=== PATIENT | female | born 1960 | race Caucasian/White ===

== ENCOUNTER 2016-07-29 10:19 | Outpatient (CLI) ==
[2015-02-13 14:21] VITALS: BMI 25.4
--- NOTE | 2016-07-29 10:53 | MAMMO ---
EXAM: Right digital diagnostic mammogram. History: Right breast nodules. Comparison: Bilateral mammogram 07/08/2016 Findings: Right breast density is scattered. Additional spot compression views of the right breast demonstrate normal superimposed breast parenchyma. There are no suspicious masses and no microcalc ifications. Impression: Benign right mammogram. Recommend return to routine screening mammography schedule. BIRADS 2
== END 2016-07-29 10:20 | disposition home or self-care (01) ==
LOC: RAD 10:19
PROVIDERS: ATTEND Family Medicine
DX: R92.8 Other abnormal and inconclusive findings on diagnostic imaging of breast (principal)

== ENCOUNTER 2017-08-16 08:58 | Outpatient (CLI) ==
[2015-02-13 14:21] VITALS: BMI 25.4
--- NOTE | 2017-08-16 10:43 | MRI ---
EXAM: MRI lumbar spine without IV contrast. DATE: 16 August 2017. HISTORY: Low back pain. TECHNIQUE: Sagittal and axial T1W and T2W sequences of the lumbar spine along with sagittal IR and c oronal T2W sequences were obtained using 1.2 Kayla magnet. No IV contrast. COMPARISON: LS spine series 07/28/2012. MRI L-spine 07/28/2012. FINDINGS: There are five [id number] lumbar vertebra. No lumbar scoliosis is present. No acute lumbar fracture, subluxation, osseous malignancy, or pars interarticularis defect is demonstrated. Lumbar vertebra are normal in height. Bone marrow signal is overall normal. Focal area of IR hyperi ntensity is now within the right L4 pars interarticularis region, suggesting stress reaction. Tiny, chronic Schmorl's nodes are visible at L1, L2, and L3. Minor osteophytes are seen in the lower L-spi ne. Mild disc space narrowing is detected at L1-2. Remaining intervertebral discs are normal in hei ght. T2W bright, T1W dark, 5.4 x 9.8 mm right paramidline focus in the spinal canal at S2 is likely a Tarlov cyst. No acute sacral fracture or stress reaction is evident. SI joints are unremarkable. Conus medullaris terminates at L1-2. Visible spinal cord is normal. No retroperitoneal lymphadenopathy, paraspinal mass, or aortic aneurysm is detected. Paraspinal musc ulature is symmetric bilaterally. Right lobe liver is greater than 16.5 cm in length, without distin ct focal mass. Spleen, right adrenal gland, and kidneys are normal. Left adrenal body demonstrates a 5.1 x 4 mm contour bulge/thickening on axial image #6. A rounded T2W/T1W intermediate signal focus (12.3 mm) near the inferomedial margin the spleen is likely benign splenule. No bowel obstruction o r malignancy is apparent. Segmental analysis: T11-12: Normal. T12-L1: Normal. L1-2: Small posterior disc bulge causes triangulation of the canal. Each foramen is patent. L2-3: Normal. L3-4: Minor concentric disc bulge, superimposed right foraminal to far lateral disc protrusion (2.8 mm AP by 13 mm transverse) causes moderate right foraminal stenosis and minor left foraminal encroach ment. Right L3 exiting nerve root appears compressed near the lateral margin of the foramen. No satya tral canal stenosis. L4-5: Small concentric disc bulge and minor facet arthropathy cause moderate bilateral foraminal mary kay noses. Each L4 nerve root contacts the disc bulge near the lateral margin of the foramen. No centra l canal stenosis. L5-S1: Normal, except for minor left facet arthropathy. IMPRESSIONS: 1. Lumbar spine minor spondylosis, mild facet arthropathy, and mild DDD - - triangulation canal at L 1-2 and right foraminal disc protrusion at L3-4 are new since July 2012. 2. L3-4 and L4-5 foraminal stenoses as described. Right L3 and both L4 nerve roots contact disc bul ges near the foramen, and could be sources for pain/radiculopathy. 3. 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 4. Old Schmorl's nodes at L1, L2, L3. 5. 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 6. Mild hepatomegaly - etiology uncertain. 7. Tiny left adrenal lesion - consider adenoma.
== END 2017-08-16 08:59 | disposition home or self-care (01) ==
LOC: RAD 08:58
PROVIDERS: ATTEND Family Medicine
DX: M54.10 Radiculopathy, site unspecified (principal); M54.9 Dorsalgia, unspecified; G89.29 Other chronic pain

== ENCOUNTER 2018-10-31 13:29 | Outpatient (CLI) ==
[2015-02-13 14:21] VITALS: BMI 25.4
--- NOTE | 2018-11-02 11:21 | MAMMO ---
EXAM: Digital screening mammogram with tomosynthesis HISTORY: Screening COMPARISON: 07/08/2016 FINDINGS: Digital MLO and CC views of the right and left breast were performed. Tomosynthesis was performed. Computer aided detection utilized. There are scattered fibroglandular densities. There is no evidence for mass, asymmetry, distortion, or suspicious calcifications in either breast. IMPRESSION: 1. No evidence of malignancy in the right or left breast. 2. Annual screening mammogram is recommended in one year. BIRADS category 1, negative examination
== END 2018-10-31 13:30 | disposition home or self-care (01) ==
LOC: RAD 13:29
PROVIDERS: ATTEND Family Medicine
DX: Z12.31 Encounter for screening mammogram for malignant neoplasm of breast (principal)